=== PATIENT | female | born 1965 | race Hispanic/Latino ===

== ENCOUNTER 2020-01-21 16:27 | Emergency (ER) | payer BC, OTHER ==
[2020-01-21] MEDS ORDERED: KETOROLAC TROMETHAMINE 60 MG/2 ML VIAL ONE (17:17)
[2020-01-21] MEDS ORDERED: DIAZEPAM 5 MG/ML 2 ML SYG ONE (17:18)
== END 2020-01-21 18:17 | disposition home or self-care (01) ==
LOC: EDH 16:27
DX: M54.16 Radiculopathy, lumbar region (principal); Z90.49 Acquired absence of other specified parts of digestive tract; Z90.710 Acquired absence of both cervix and uterus
CPT/HCPCS: 72100; 96372 ×2; 99284; J1885; J3360